=== PATIENT | female | born 1960 | race Caucasian/White ===

== ENCOUNTER 2021-08-29 18:59 | Emergency (ER) | payer MEDICAID ==
[~2021-08-29] VITALS: Ht 157.5 cm; Wt 45.0 kg
[2021-08-29 19:04] VITALS: BP 127/83
[2021-08-29] MEDS ORDERED: CEPH500T MT (19:59)
== END 2021-08-29 20:22 | disposition home or self-care (01) ==
LOC: ER 18:59
DX: S60.861A Insect bite (nonvenomous) of right wrist, initial encounter (principal); L03.113 Cellulitis of right upper limb; W57.XXXA Bitten or stung by nonvenomous insect and other nonvenomous arthropods, initial encounter; Y93.89 Activity, other specified; Y92.89 Other specified places as the place of occurrence of the external cause
CPT/HCPCS: 99283